=== PATIENT | female | born 1960 | race Caucasian/White ===

== ENCOUNTER 2021-06-08 15:23 | Emergency (ER) | payer OTHER ==
[~2021-06-08] VITALS: Ht 162.6 cm; Wt 85.7 kg
== END 2021-06-08 18:20 | disposition home or self-care (01) ==
LOC: ER1 15:23
DX: Z23 Encounter for immunization (principal); U07.1 COVID-19; I10 Essential (primary) hypertension
CPT/HCPCS: 99283; M0243

== ENCOUNTER → 2021-09-25 | Outpatient (CLI) | payer BC | LOC: EXRD 14:29 | DX: R51.9 Headache, unspecified (principal); R09.89 Other specified symptoms and signs involving the circulatory and respiratory systems; R03.0 Elevated blood-pressure reading, without diagnosis of hypertension; I65.23 Occlusion and stenosis of bilateral carotid arteries | CPT/HCPCS: 93880 ==